=== PATIENT | male | born 1945 | race American Indian/Alaskan Native ===

== ENCOUNTER 2016-10-21 11:35 | Day surgery (SDC) | payer OTHER ==
[2016-10-13 13:13] VITALS: BMI 31.1
[2016-10-21] MEDS ORDERED: Propofol 10 mg/ml Inj (20 ML) ONE (12:58)
[2016-10-21] MEDS ORDERED: ePHEDrine 50 mg/ml Inj ONE (13:21)
[2016-10-21 14:00] VITALS: RESP 18
[2016-10-21 14:35] VITALS: BP 129/73; PULSE 63; TEMP 97.5; O2SAT 95
== END 2016-10-21 15:07 | disposition home or self-care (01) ==
LOC: ENDO 11:35
PROVIDERS: ATTEND Internal Medicine
DX: D12.3 Benign neoplasm of transverse colon (principal); D12.4 Benign neoplasm of descending colon; K57.30 Diverticulosis of large intestine without perforation or abscess without bleeding; K64.8 Other hemorrhoids; I10 Essential (primary) hypertension; E78.5 Hyperlipidemia, unspecified
CPT/HCPCS: 45380; 88305; J2704

== ENCOUNTER 2018-05-26 09:26 | Outpatient (CLI) | payer MEDICARE | END 2018-05-26 09:27 | disposition home or self-care (01) | LOC: RAD 09:26 ==

== ENCOUNTER 2018-08-23 08:09 | Emergency (ER) | payer MEDICARE ==
[2018-08-23 08:10] VITALS: BMI 31.1
[2018-08-23 08:24] VITALS: TEMP 98.3
[2018-08-23 08:29] VITALS: RESP 16
--- NOTE | 2018-08-23 08:46 | ED PDOC ---
Arrival/HPI - General Chief Complaint: Lower Extremity Problem/Injury Time Seen by Provider: 08/23/18 08:23 Historian: Patient - History of Present Illness Narrative History of Present Illness (Text): 08/23/18 08:34 73 year old M with pmh of hypertension presents with chief complaint of right ankle pain x1week. Patient reports tripping 1 week ago and injurying his right ankle but being able to ambulate at baseline since. He is c/o of swelling of right ankle now. He denies any fall or LOC. Patient denies any fevers, chills, headache, dizziness, chest pain, shortness of breath, dyspnea on exertion, cough, diaphoresis, abdominal pain, nausea, vomiting, diarrhea, back pain, neck pain, or any other complaint. Time/Duration: < week Symptom Onset: Gradual Symptom Course: Unchanged Activities at Onset: Light Context: Home Past Medical History - Provider Review Nursing Documentation Reviewed: Yes - Infectious Disease Hx of Infectious Diseases: None - Cardiac Hx Cardiac Disorders: Yes Hx Hypertension: Yes - Pulmonary Hx Respiratory Disorders: No - Neurological Hx Paralysis: No - Hematological/Oncological Hx Blood Transfusions: No - Musculoskeletal/Rheumatological Hx Musculoskeletal Disorders: No - Psychiatric Hx Emotional Abuse: No Hx Physical Abuse: No Hx Substance Use: No - Anesthesia Hx Anesthesia Reactions: No Hx Malignant Hyperthermia: No - Suicidal Assessment Feels Threatened In Home Enviroment: No Family/Social History - Physician Review Nursing Documentation Reviewed: Yes Family/Social History: Unknown Family HX Smoking Status: Unknown If Ever Smoked Hx Alcohol Use: No Hx Substance Use: No Allergies/Home Meds Allergies/Adverse Reactions: Allergies No Known Allergies Allergy (Verified 10/13/16 13:13) Home Medications: Home Meds Medication Instructions Recorded Confirmed Losartan [Cozaar] 50 mg PO DAILY 10/13/16 10/21/16 amLODIPine [Norvasc] 10 mg PO DAILY 10/13/16 10/21/16 Review of Systems - Physician Review All systems were reviewed & negative as marked: Yes - Review of Systems Constitutional: Normal. absent: Fevers ENT: absent: Rhinorrhea Respiratory: absent: SOB, Cough Cardiovascular: absent: Chest Pain, Palpitations, Edema, Syncope Gastrointestinal: absent: Abdominal Pain, Diarrhea, Nausea, Vomiting Musculoskeletal: Arthralgias (right foot), Joint Swelling (right ankle) Skin: Normal Neurological: absent: Headache, Dizziness Physical Exam Vital Signs Reviewed: Yes Vital Signs Temp Pulse Resp BP Pulse Ox 08/23/18 08:28 40 L 16 152/72 H 98 08/23/18 08:17 98.3 F 40 L 18 170/71 H 99 Temperature: Afebrile Blood Pressure: Hypertensive Pulse: Bradycardic Respiratory Rate: Normal Appearance: Positive for: Well-Appearing, Non-Toxic, Comfortable Pain Distress: Mild Mental Status: Positive for: Alert and Oriented X 3 - Systems Exam Head: Present: Atraumatic, Normocephalic Pupils: Present: PERRL Extroacular Muscles: Present: EOMI Conjunctiva: Present: Normal Mouth: Present: Moist Mucous Membranes Neck: Present: Normal Range of Motion Respiratory/Chest: Present: Clear to Auscultation, Good Air Exchange. No: Respiratory Distress, Accessory Muscle Use Cardiovascular: Present: Normal S1, S2, Bradycardic (normal rhythm). No: Murmurs Abdomen: No: Tenderness, Distention, Peritoneal Signs Back: Present: Normal Inspection Upper Extremity: Present: Normal Inspection. No: Cyanosis, Edema Lower Extremity: Present: NORMAL PULSES, Normal ROM, Tenderness (right dorsal and right lateral malleolus), Swelling (right lateral malleolus), Neurovascularly Intact, Capillary Refill < 2 s. No: Edema Neurological: Present: GCS=15, CN II-XII Intact, Speech Normal Skin: Present: Warm, Dry, Normal Color. No: Rashes Psychiatric: Present: Alert, Oriented x 3, Normal Insight, Normal Concentration Medical Decision Making ED Course and Treatment: 08/23/18 08:47 Impression: 73 year old M presents with chief complaint of right ankle pain x1week. Patient reports tripping on right ankle but being able to ambulate at baseline since. He denies any fall or LOC. Patient's HR down to high 30's and then up to 70's. Patient states he has a h/o bradycardia and has had a full w/u for it. Patient denies taking any beta blockers. Plan: -- Right foot X Ray -- Right Ankle X Ray -- Reassess and disposition Prior Visits: Notes and results from previous visits were reviewed. Progress Notes: 08/23/18 09:13 Spoke to patient's who ascertained patient's chronic heart rate problem. She mentions that patient has undergone stress test and seen diagnostic tech who affirms patient is asymptomatic. Patient remains asymptomatic. - Scribe Statement The provider has reviewed the documentation as recorded by the Nat Soriano All medical record entries made by the Scribe were at my direction and personally dictated by me. I have reviewed the chart and agree that the record accurately reflects my personal performance of the history, physical exam, medical decision making, and the department course for this patient. I have also personally directed, reviewed, and agree with the discharge instructions and disposition. Disposition/Present on Arrival - Present on Arrival Any Indicators Present on Arrival: No History of DVT/PE: No History of Uncontrolled Diabetes: No Urinary Catheter: No History of Decub. Ulcer: No History Surgical Site Infection Following: None - Disposition Have Diagnosis and Disposition been Completed?: Yes Diagnosis: Ankle sprain, Foot pain, Bradycardia Disposition: HOME/ ROUTINE Disposition Time: 10:13 Patient Plan: Discharge Condition: STABLE Discharge Instructions (ExitCare): Ankle Sprain (DC), Bradycardia (DC), How to Use an Elastic Bandage, Foot Sprain (DC) Additional Instructions: PAULINE SIERRA, thank you for letting us take care of you today. Your provider was Cherie Navarro MD and you were treated for right ankle ( twist). The emergency medical care you received today was directed at your acute symptoms. If you were prescribed any medication, please fill it and take as directed. It may take several days for your symptoms to resolve. Return to the Emergency Department if your symptoms worsen, do not improve, or if you have any other problems. Please contact your doctor in 1-2 days. Bring any paperwork you were given at discharge with you along with any medications you are taking to your follow up visit. Our treatment cannot replace ongoing medical care by a primary care provider outside of the emergency department. Thank you for allowing the [facility] team to be part of your care today. If you had an X-Ray or CT scan: A Radiologist will review the ED reading if any change in treatment is needed we will contact you. If you had a blood, urine, or wound culture: It will take several days for the results, if any change in treatment is needed we will contact you. If you had an STI test: It will take 48 hours for the results. Please call after 1 week if you have not heard back. Forms: [facility] (Chinese), WORK NOTE
--- NOTE | 2018-08-23 10:14 | RAD ---
Date of service: 08/23/2018 PROCEDURE: Right Ankle Radiographs. HISTORY: injury COMPARISON: None available. TECHNIQUE: 3 views obtained. FINDINGS: BONES: Normal. No fracture. JOINTS: Normal. No osteoarthritis. Ankle mortise maintained. Talar dome intact SOFT TISSUES: Normal. OTHER FINDINGS: None. IMPRESSION: Normal right ankle radiographs.
--- NOTE | 2018-08-23 10:19 | RAD ---
Date of service: 08/23/2018 PROCEDURE: Right Foot Radiographs. HISTORY: injury COMPARISON: None. TECHNIQUE: 3 views obtained. FINDINGS: BONES: Normal. No fracture. JOINTS: Mild hallux valgus angulation SOFT TISSUES: Normal. OTHER FINDINGS: None. IMPRESSION: No acute findings
[2018-08-23 10:43] VITALS: BP 142/66; PULSE 48; O2SAT 98
== END 2018-08-23 10:41 | disposition home or self-care (01) ==
LOC: ED 08:09
DX: S93.401A Sprain of unspecified ligament of right ankle, initial encounter (principal); W01.0XXA Fall on same level from slipping, tripping and stumbling without subsequent striking against object, initial encounter; M25.571 Pain in right ankle and joints of right foot; R00.1 Bradycardia, unspecified; I10 Essential (primary) hypertension